=== PATIENT | male | born 1970 | race Caucasian/White ===

== ENCOUNTER 2016-11-25 00:37 | Emergency (ER) | payer MEDICARE, MEDICAID ==
[~2016-11-25] VITALS: Ht 182.9 cm; Wt 113.4 kg
[2016-11-25 01:20] VITALS: BP 144/93
--- NOTE | 2016-11-25 02:10 | Emergency Room Report ---
History of Present Illness General Chief Complaint: General Complaint Source: Patient Present Illness HPI Patient presents requesting Abilify IM injection 400 mg Patient presenting has a history of schizophrenia, he was prescribed medication by a psychiatrist Her reports that he is here to see the IM injection he did not feel comfortable giving it to himself Patient reports last time he had the injection was 2-3 weeks ago Denies any chest pain or shortness of breath denies any back or flank pain Denies any homicidal or suicidal thoughts Allergies: Coded Allergies: No Known Allergies (Unverified , 11/25/16) Patient History Past Medical History: see triage record Pertinent Family History: none Reviewed Nursing Documentation: PMH: Agreed, PSxH: Agreed Nursing Documentation-PMH History Of Psychiatric Problem: Yes - schizo affective Review of Systems All Other Systems: negative except mentioned in HPI Physical Exam Vital Signs Date Time Temp Pulse Resp B/P Pulse Ox O2 Delivery O2 Flow Rate FiO2 11/25/16 00:54 84 18 144/93 93 Room Air Sp02 EP Interpretation: reviewed, normal General Appearance: well appearing, no apparent distress Head: normocephalic, atraumatic Eyes: bilateral eye EOMI, bilateral eye PERRL ENT: hearing grossly normal, normal pharynx, TMs + canals normal, uvula midline Neck: full range of motion, supple, no meningismus, no bony tend Respiratory: lungs clear, normal breath sounds, no rhonchi, no respiratory distress, no retraction, no accessory muscle use Cardiovascular #1: normal peripheral pulses, regular rate, rhythm, no edema, no gallop, no JVD, no murmur Gastrointestinal: normal bowel sounds, non tender, soft, no mass, no organomegaly, non-distended, no guarding, no hernia, no pulsatile mass, no rebound Genitourinary: no CVA tenderness Musculoskeletal: normal inspection Neurologic: oriented x3, responsive, hand stapler III-XII nml as tested, motor strength/ tone normal, sensory intact Psychiatric: other - Appears mildly anxious, but denies homicidal or suicidal thought Skin: normal color, no rash, warm/dry, palpation normal Lymphatic: normal inspection, no adenopathy Medical Decision Making Diagnostic Impression: Primary Impression: schizophrenia ER Course Patient presents with a box with Abilify inside for reconstitution Unfortunately at this time I was told by nursing staff that, given the by laws, they are not able to dispense medication from outside source Pharmacy is also not available at this time and does not have 400 mg Abilify for dispensing At this time patient was further educated provided with psychiatric resources and requires outpatient followup , Last Vital Signs Date Time Temp Pulse Resp B/P Pulse Ox O2 Delivery O2 Flow Rate FiO2 11/25/16 01:20 96 18 144/93 93 Room Air Status: unchanged Disposition: HOME, SELF-CARE Condition: Stable Referrals: NOT CHOSEN IPA/MD,REFERRING (PCP) Patient Instructions: Schizophrenia Additional Instructions: Unfortunately, the medical staff at this facility was unable to dispense home medications. We do not have Abilify, 400 mg injectable at our pharmacy. It is advised that you follow with your psychiatrist who provided a prescription , or other acute psychiatric facility I might be able to provide this medication DANTE CHARLES D.O. Nov 25, 2016 02:10
== END 2016-11-25 01:20 | disposition home or self-care (01) ==
LOC: EMR 01:05
DX: F20.9 Schizophrenia, unspecified (principal)
CPT/HCPCS: 99281

== ENCOUNTER 2017-12-11 02:18 | Emergency (ER) | payer MEDICAID, MEDICARE ==
[~2017-12-11] VITALS: Ht 182.9 cm; Wt 131.5 kg
[2017-12-11 02:48] VITALS: BP 134/79
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
[2017-12-11] MEDS ORDERED: IBUPROFEN600 MG ORAL (03:16)
[2017-12-11 03:29] VITALS: BP 134/79
--- NOTE | 2017-12-11 10:50 | Diagnostic Imaging Report ---
Indication: Trauma Technique: XRAY Fingers 2-3v R Comparison: None Findings: Is no evidence of acute fracture or dislocation. There is mild soft tissue swelling of the fifth digit. No radiopaque foreign body seen. Impression: No evidence of acute fracture or dislocation.
== END 2017-12-11 03:20 | disposition home or self-care (01) ==
LOC: EMR 03:04
DX: S66.316A Strain of extensor muscle, fascia and tendon of right little finger at wrist and hand level, initial encounter (principal); V43.52XA Car driver injured in collision with other type car in traffic accident, initial encounter; Y93.9 Activity, unspecified; Y92.410 Unspecified street and highway as the place of occurrence of the external cause
CPT/HCPCS: 99283